=== PATIENT | female | born 1970 ===

== ENCOUNTER 2018-07-30 15:43 | Emergency (ER) | payer SELFPAY ==
[2018-07-30 16:05] VITALS: RESP 18; TEMP 97.9
[2018-07-30 17:16] LABS: SQUAMOUS EPITHIAL 3 /hpf (0-5); URINE BILIRUBIN NEGATIVE (NEGATIVE); URINE BLOOD NEGATIVE (NEGATIVE); URINE CLARITY Clear (Clear); URINE COLOR Straw (YELLOW); URINE GLUCOSE (UA) NORMAL (Normal); URINE LEUKOCYTE ESTERASE NEG Leu/uL (Negative); URINE PROTEIN NEGATIVE (NEGATIVE); URINE UROBILINOGEN NORMAL mg/dL (0.2-1.0)
--- NOTE | 2018-07-30 17:38 | C.PDOC ---
History Of Present Illness 48 y/o female with PMH of HTN presents to ED c/o flu-like symptoms x 2.5 days. Symptoms include sore throat, generalized myalgias, chills. Takes organic vitamins to treat her HTN. No flu shot or sick contacts. No PMD. Denies abdominal pain, urinary symptoms, fevers, dizziness,chest pain, palpitations, SOB, neck pain, or any other associated symptoms. HPI: Influenza Time Seen by Provider: 07/30/18 16:30 Chief Complaint: Flu-like Symptoms Past Medical History Reviewed: Historical Data, Nursing Documentation, Vital Signs Vital Signs: Last Vital Signs Temp 97.9 F 07/30/18 16:00 Pulse 75 07/30/18 16:36 Resp 18 07/30/18 16:36 BP 154/98 H 07/30/18 16:36 Pulse Ox 96 07/30/18 16:36 - Medical History PMH: HTN Family History: States: No Known Family Hx - Social History Hx Alcohol Use: No Hx Substance Use: No - Immunization History Hx Influenza Vaccination: Yes Review Of Systems Constitutional: Positive for: Chills. Negative for: Fever Eyes: Negative for: Vision Change ENT: Positive for: Nose Congestion, Throat Pain Cardiovascular: Negative for: Chest Pain, Palpitations, Light Headedness Respiratory: Negative for: Cough, Shortness of Breath Gastrointestinal: Negative for: Nausea, Vomiting, Abdominal Pain Musculoskeletal: Positive for: Other (generalized myalgias). Negative for: Neck Pain, Back Pain Skin: Negative for: Rash Neurological: Negative for: Weakness, Numbness, Headache, Dizziness Physical Exam - Physical Exam Appears: Well, Non-toxic, No Acute Distress, Other (obese) Skin: Normal Color, Warm, Dry Head: Atraumatic, Normacephalic, No Tenderness Eye(s): bilateral: Normal Inspection, PERRL, EOMI Nose: Normal Throat: Normal Neck: Normal, Normal ROM, Supple Lymphatic: Normal Exam Cardiovascular: Rhythm Regular Respiratory: Normal Breath Sounds Gastrointestinal/Abdominal: Normal Exam, Soft, No Tenderness, No Other (no pulsatile ) Back: Normal Inspection, Paraspinal Tenderness (bilateral lumbar paraspinal ) Extremity: Normal ROM, Capillary Refill (<2s) Pulses: Left Radial: Normal, Right Radial: Normal Neurological/Psych: Oriented x3, Normal Speech, Normal Motor, Normal Sensation Gait: Steady Medical Decision Making Medical Decision Making: Initial Plan: * Tylenol * UA * Reassess and Disposition Symptoms have resolved with tylenol, per patient. Blood pressure has improved. Taken myself on bare skin with appropriate sized cuff instead of over thick sweater. Will treat empirically for flu secondary to flu-like symptoms. Diagnostic testing results and plan of care discussed with patient. Strict instructions given regarding prescription use, importance of followup, and signs/symptoms to return to ER including dizziness, vision changes, abdominal pain, or any other new/worsening symptoms. Pt verbalized understanding of discussion. Patient is A&Ox3, ambulating with steady gait, with vital signs stable for discharge. - Laboratory Results Lab Results: Urine Color Straw (YELLOW) 07/30/18 17:04 Urine Clarity Clear (Clear) 07/30/18 17:04 Urine pH 7.0 (5.0-8.0) 07/30/18 17:04 Ur Specific [place] 1.003 (1.003-1.030) 07/30/18 17:04 Urine Protein Negative mg/dL (NEGATIVE) 07/30/18 17:04 Urine Glucose (UA) Normal mg/dL (Normal) 07/30/18 17:04 Urine Ketones Negative mg/dL (NEGATIVE) 07/30/18 17:04 Urine Blood Negative (NEGATIVE) 07/30/18 17:04 Urine Nitrate Negative (NEGATIVE) 07/30/18 17:04 Urine Bilirubin Negative (NEGATIVE) 07/30/18 17:04 Urine Urobilinogen Normal mg/dL (0.2-1.0) 07/30/18 17:04 Ur Leukocyte Esterase Neg Kayli/uL (Negative) 07/30/18 17:04 Urine WBC (Auto) 1 /hpf (0-5) 07/30/18 17:04 Urine RBC (Auto) 1 /hpf (0-3) 07/30/18 17:04 Ur Squamous Epith Cells 3 /hpf (0-5) 07/30/18 17:04 - ECG O2 Sat by Pulse Oximetry: 96 Disposition - Disposition Referrals: [facility] at [facility] [Outside] Disposition: HOME/ ROUTINE Disposition Time: 18:20 Condition: GOOD Additional Instructions: Aumentar los fluidos Tamiflu cada 12 horas porfirio 5 castaneda, 9 dosis ms Ibuprofeno / Tylenol para el dolor y la fiebre Seguimiento con clnica para el manejo de la PA. Seguimiento con primaria dentro de 2 castaneda. Regrese a la mauricio de emergencias con cualquier sntoma nuevo o que empeore Prescriptions: Oseltamivir Cap [Tamiflu] 75 mg PO Q12H #9 cap Instructions: High Blood Pressure in Adults, Flu, Adult (DC), Controlling Your Blood Pressure Through Lifestyle Forms: General Discharge Instructions, [facility] (U[place]ayan), Work Excuse Print Language: BANGLADESHI - Clinical Impression Clinical Impression: Influenza-like illness
[2018-07-30 18:20] VITALS: BP 146/74; PULSE 88
[2018-07-31 02:27] VITALS: O2SAT 96
== END 2018-07-30 18:20 | disposition home or self-care (01) ==
LOC: C.ER 15:43
DX: J11.1 Influenza due to unidentified influenza virus with other respiratory manifestations (principal)